=== PATIENT | female | born 1965 | race Caucasian/White ===

== ENCOUNTER 2016-10-29 11:52 | Emergency (ER) | payer BC ==
[~2016-10-29] VITALS: Ht 157.5 cm; Wt 68.0 kg
[~2016-10-29 11:52] MED LIST: FLEXERIL5 MG PO; KLONOPIN0.5 M1 PO; LEXAPRO PO; LEXAPRO10 MG PO; MOTRIN400 MG PO; NOHOMEMEDS; TYLENOL WITH C1 EACH PO; ULTRAM50 MG PO; [UNRECOGNIZED DRUG - REMARK] PO
[2016-10-29 13:26] LABS: HEMATOCRIT 37.8 % (36.0-46.0); MCHC 33.6 G/DL (30.0-36.0); MCV 86.3 FL (83-99); MEAN PLAT.VOLUME 12.3 uM^3 (9.5-12.4); PLATELET COUNT 204 K/uL (156-360); RBC DIS.WIDTH-CV 13.8 % (11.8-14.6); RBC DIS.WIDTH-SD 43.1 % (39-53); RED BLOOD COUNT 4.38 M/uL (3.80-5.20); WHITE BLOOD COUNT 6.7 K/uL (4.1-10.2)
[2016-10-29 13:44] LABS: CHLORIDE 106 mEq/L (99-109); POTASSIUM 3.5 mEq/L (3.7-5.4); SODIUM 143 mEq/L (136-147)
[2016-10-29 13:46] LABS: GLUCOSE 83 mg/dL (70-99)
[2016-10-29 13:48] LABS: ANION GAP 11 MEQ/L (2-14)
[2016-10-29 13:51] LABS: UREA NITROGEN (BUN) 12 mg/dL (9-23)
[2016-10-29 13:52] LABS: TROP-I INTERPRETATION NEGATIVE; TROPONIN-I < 0.01 ng/mL (0.0-0.30)
[2016-10-29 13:53] LABS: GFR ESTIMATE (CALCULATED) > 59 mL/min/
[2016-10-29 14:51] LABS: D-DIMER ELISA 0.17 mg/L FEU (< 0.57)
[2016-10-29 15:48] LABS: TROP-I INTERPRETATION NEGATIVE; TROPONIN-I < 0.01 ng/mL (0.0-0.30)
[2016-10-29] MEDS ORDERED: ASPIRIN325 MG PO (16:35)
[2016-10-29] MEDS ORDERED: ATIVAN1 MG PO (16:35)
[2016-10-29 16:53] VITALS: BP 130/86
== END 2016-10-29 16:54 | disposition home or self-care (01) ==
LOC: EME 11:52
PROVIDERS: Emergency Medicine
DX: R07.9 Chest pain, unspecified (principal); Z79.891 Long term (current) use of opiate analgesic
CPT/HCPCS: 71020; 80048; 84484; 85027; 85379; 93005; 99281; 99284

== ENCOUNTER 2018-01-11 18:26 | Emergency (ER) | payer OTHER ==
[~2018-01-11] VITALS: Ht 157.5 cm; Wt 70.4 kg
[~2018-01-11 18:26] MED LIST changes: +ASPIRIN325 MG PO; +ATIVAN1 MG PO
[2018-01-11] MEDS ORDERED: ULTRACET1 TABLET PO (19:29)
[2018-01-11] MEDS ORDERED: INDOCIN50 MG PO (19:29)
[2018-01-11] MEDS ORDERED: VALIUM5 MG PO (19:29)
[2018-01-11 19:56] VITALS: BP 169/100
== END 2018-01-11 19:56 | disposition home or self-care (01) ==
LOC: EME 18:26
DX: M54.42 Lumbago with sciatica, left side (principal); G89.29 Other chronic pain
CPT/HCPCS: 99281; 99284

== ENCOUNTER 2018-01-17 10:20 | Emergency (ER) | payer OTHER ==
[~2018-01-17] VITALS: Ht 157.5 cm; Wt 70.4 kg
[~2018-01-17 10:20] MED LIST changes: +INDOCIN50 MG PO; +ULTRACET1 TABLET PO; +VALIUM5 MG PO
[2018-01-17] MEDS ORDERED: LIDODERM 5% P1 PATCH TD (12:10)
[2018-01-17] MEDS ORDERED: FLEXERIL10 MG PO (12:12)
[2018-01-17 12:24] VITALS: BP 138/76
[2018-01-18] MEDS ORDERED: FLEXERIL10 MG PO (14:27)
[2018-01-18] MEDS ORDERED: PREDNISONE20 MG PO (14:27)
== END 2018-01-17 12:24 | disposition home or self-care (01) ==
LOC: EME 10:20
DX: S39.012A Strain of muscle, fascia and tendon of lower back, initial encounter (principal); S86.912A Strain of unspecified muscle(s) and tendon(s) at lower leg level, left leg, initial encounter; X50.9XXA Other and unspecified overexertion or strenuous movements or postures, initial encounter; Y99.0 Civilian activity done for income or pay
CPT/HCPCS: 72100; 73502; 99281; 99283; J1885

== ENCOUNTER 2018-01-18 12:30 | Emergency (ER) | payer OTHER ==
[~2018-01-18] VITALS: Ht 157.5 cm; Wt 69.4 kg
[~2018-01-18 12:30] MED LIST changes: +FLEXERIL10 MG PO; +LIDODERM 5% P1 PATCH TD
[2018-01-18 13:53] LABS: APPEARANCE CLEAR ((CLEAR)); BILIRUBIN NEGATIVE; BLOOD SMALL; COLOR YELLOW ((YELLOW)); GLUCOSE (STRIP) NEGATIVE; KETONES 5; LEUKOCYTES NEGATIVE; NITRITE NEGATIVE; PROTEIN (STRIP) NEGATIVE; UROBILINOGEN 0.2 MG/DL (0.2-1.0)
[2018-01-18 13:56] LABS: BACTERIA NONE SEEN /HPF; EPITHELIAL CELLS 1+ /HPF; MUCUS TRACE /LPF; RED BLOOD CELLS 0-5 /HPF (0-5); UCUL ADDED? NO; WHITE BLOOD CELLS 0-5 /HPF (0-5)
[2018-01-18] MEDS ORDERED: PREDNISONE20 MG PO (14:27)
[2018-01-18] MEDS ORDERED: FLEXERIL10 MG PO (14:27)
[2018-01-18 14:40] VITALS: BP 150/94
== END 2018-01-18 14:43 | disposition home or self-care (01) ==
LOC: EME 12:30 → RME 12:30
PROVIDERS: Nurse Practitioner Family
DX: M54.32 Sciatica, left side (principal); Z87.39 Personal history of other diseases of the musculoskeletal system and connective tissue; I10 Essential (primary) hypertension; Z87.19 Personal history of other diseases of the digestive system; Z86.59 Personal history of other mental and behavioral disorders; Z88.8 Allergy status to other drugs, medicaments and biological substances; Z88.6 Allergy status to analgesic agent; Z88.5 Allergy status to narcotic agent
CPT/HCPCS: 81003; 99281; 99285; J1885; J2060; J7512